=== PATIENT | female | born 1985 | race American Indian/Alaskan Native ===

== ENCOUNTER 2019-07-07 21:57 | Emergency (ER) | payer SELFPAY ==
[2019-07-07 22:22] VITALS: BP 119/82
--- NOTE | 2019-07-07 22:35 | Emergency Department Report ---
Chief Complaint: Urogenital-Female Stated Complaint: VAGINAL ODOR - HPI History of Present Illness: 34-year-old -[place] female presents to the emergency room for 2-day history of vaginal odor. Patient denies any nausea vomiting does complain of a little lower abdominal cramping but is currently on her period. Patient denies any fever or chills. - Exam Vital Signs: Vital Signs 07/07/19 22:05 Temperature 98.8 F Pulse Rate 111 H Respiratory 18 Rate Blood Pressure 119/82 O2 Sat by Pulse 98 Oximetry Physical Exam: Gen: alert oriented NAD Cardic: regular rate and rhythm no murmurs appreciated Resp: Clear to auscultation bilateral no wheezing no rales or rhonchi. Abdomen: Soft nontender nondistended normal bowel sounds. MSE screening note: Focused history and physical exam performed. Due to findings the following was ordered: 34-year-old -[place] female presents to the emergency room for 2-day history of vaginal odor. Patient denies any nausea vomiting does complain of a little lower abdominal cramping but is currently on her period. Patient denies any fever or chills. ED Medical Decision Making - Lab Data Lab Results 07/07/19 Range/Units 22:25 Urine Color Yellow (Yellow) Urine Turbidity Clear (Clear) Urine pH 6.0 (5.0-7.0) Ur Specific [place] 1.016 (1.003-1.030) Urine Protein <15 mg/dl (Negative) mg/dL Urine Glucose (UA) Neg (Negative) mg/dL Urine Ketones Neg (Negative) mg/dL Urine Blood Mod (Negative) Urine Nitrite Neg (Negative) Urine Bilirubin Neg (Negative) Urine Urobilinogen 2.0 (<2.0) mg/dL Ur Leukocyte Esterase Tr (Negative) Urine WBC (Auto) 8.0 H (0.0-6.0) /HPF Urine RBC (Auto) 5.0 (0.0-6.0) /HPF U Epithel Cells (Auto) 6.0 (0-13.0) /HPF Urine Bacteria (Auto) 2+ (Negative) /HPF Urine Mucus 2+ /HPF Urine HCG, Qual Negative (Negative) ED Disposition for MSE Disposition: MED SCREENING EXAM-LEFT Is pt being admited?: No Does the pt Need Aspirin: No Condition: Stable Additional Instructions: test is negative urinalysis is negative please follow-up with [facility] for further evaluation. Referrals: PRIMARY CARE [Primary Care Provider] - 3-5 Days [facility] [Provider Group] - 3-5 Days [facility] [Provider Group] - 3-5 Days
[2019-07-07 22:39] LABS: Bacteria,Urine 2+ /HPF (Negative); Bilirubin,Urine NEG (Negative); Blood,Urine MOD (Negative); Color,Urine Yellow (Yellow); Mucus,Urine 2+ /HPF; Protein,Urine <15 mg/dL mg/dL (Negative)
[2019-07-07 22:54] LABS: HCG Qualitative,Urine Negative (Negative)
== END 2019-07-07 23:06 | disposition left against medical advice (07) ==
LOC: ED 21:57
DX: R10.30 Lower abdominal pain, unspecified (principal); N89.8 Other specified noninflammatory disorders of vagina; D57.80 Other sickle-cell disorders without crisis
CPT/HCPCS: 81001; 81025

== ENCOUNTER 2019-07-28 17:37 | Emergency (ER) | payer SELFPAY ==
[2019-07-28 17:46] VITALS: BP 109/66
--- NOTE | 2019-07-28 18:09 | Event Note ---
ED Screening Note ED Screening Note: Lower abd pain that began 3 weeks ago no urinary sx no n/v/d no fever normal BM yesterday +vaginal discharge PMHx none no allergies to meds LNMP: end of june This initial assessment/diagnostic orders/clinical plan/treatment(s) is/are subject to change based on patients health status, clinical progression and re- assessment by fellow clinical providers in the ED. Further treatment and workup at subsequent clinical providers discretion. Patient/guardian urged not to elope from the ED as their condition may be serious if not clinically assessed and managed. Initial orders include: UA, urine preg, labs
[2019-07-28 18:16] LABS: Basophils # (Auto) 0.1 K/mm3 (0.0-0.1); Basophils % (Auto) 0.8 % (0.0-1.8); Eosinophils # (Auto) 0.1 K/mm3 (0.0-0.4); Eosinophils % (Auto) 1.4 % (0.0-4.3); Hematocrit 37.8 % (30.3-42.9); Hemoglobin 12.9 gm/dl (10.1-14.3); Lymphocytes # (Auto) 2.6 K/mm3 (1.2-5.4); Lymphocytes % (Auto) 39.9 % (13.4-35.0); Mean Corpuscular HGB Conc 34 % (30-34); Mean Corpuscular Volume 90 fl (79-97); Monocytes # (Auto) 0.4 K/mm3 (0.0-0.8); Monocytes % (Auto) 6.3 % (0.0-7.3); Platelet Count 261 K/mm3 (140-440); Red Blood Count 4.21 M/mm3 (3.65-5.03); Red Cell Distribution Width 12.3 % (13.2-15.2)
[2019-07-28 18:33] LABS: Bacteria,Urine 1+ /HPF (Negative); Bilirubin,Urine NEG (Negative); Blood,Urine MOD (Negative); Color,Urine Yellow (Yellow); Mucus,Urine FEW /HPF; Protein,Urine <15 mg/dL mg/dL (Negative); Urobilinogen,Urine < 2.0 mg/dL (<2.0)
[2019-07-28 18:34] LABS: HCG Qualitative,Urine Negative (Negative)
[2019-07-28 18:37] LABS: Alanine Aminotransferase 18 units/L (7-56); BUN/Creatinine Ratio 26; Blood Urea Nitrogen 13 mg/dL (7-17); Hemolysis Index 12
--- NOTE | 2019-07-28 20:05 | Emergency Department Report ---
ED Abdominal Pain HPI - General Chief Complaint: Abdominal Pain Stated Complaint: ABD PAIN Time Seen by Provider: 07/28/19 18:08 Source: patient Mode of arrival: Ambulatory Limitations: No Limitations - History of Present Illness Initial Comments: 34-year-old -Nepalese female with no significant past medical history reports to emergency department complaining of a 3-week history suprapubic cramping episodes associated with scant vaginal discharge however she reports having no worry of an STD. States that her primary reason for coming to [facility] department was to receive a Pap smear. She does have a number #[facility]INE [facility] which he plans to follow-up with sometime this week but wanted to get her Pap smear today. Reports no nausea vomiting or diarrhea, no vaginal bleeding, no hematuria or dysuria, no fevers, chills, sweats no dyspareunia. Location: suprapubic Radiation: none Migration to: no migration Severity: mild Quality: aching, dull Consistency: constant Improves With: nothing Worsens With: nothing Associated Symptoms: denies: vomiting, diarrhea, constipation, hematemesis, hematuria, anorexia, syncope - Related Data Home Medications Medication Instructions Recorded Confirmed Last Taken Pnv with Ca,No.72/Iron/FA 1 tab PO DAILY 06/28/13 07/14/13 07/14/13 [ Plus Tablet] 1 Allergies Allergy/AdvReac Type Severity Reaction Status Date / Time No Known Allergies Allergy Verified 06/28/13 15:46 ED Review of Systems ROS: Stated complaint: ABD PAIN Other details as noted in HPI Comment: All other systems reviewed and negative ED Past Medical Hx - Past Medical History Previous Medical History?: Yes Hx Hypertension: No Hx Congestive Heart Failure: No Hx Diabetes: No Hx Deep Vein Thrombosis: No Hx GERD: Yes Hx Renal Disease: No Hx Sickle Cell Disease: Yes (trait) Hx Seizures: No Hx Asthma: No Hx COPD: No Hx HIV: No Additional medical history: anemia - Surgical History Past Surgical History?: No - Social History Smoking Status: Current Every Day Smoker Substance Use Type: Alcohol - Medications Home Medications: Home Medications Medication Instructions Recorded Confirmed Last Taken Type Pnv with Ca,No.72/Iron/FA 1 tab PO DAILY 06/28/13 07/14/13 07/14/13 History [ Plus Tablet] 1 ED Physical Exam - General Limitations: No Limitations General appearance: alert, in no apparent distress - Head Head exam: Present: atraumatic, normocephalic - Eye Eye exam: Present: PERRL. Absent: normal appearance - ENT ENT exam: Present: mucous membranes moist - Neck Neck exam: Present: normal inspection - Respiratory Respiratory exam: Present: normal lung sounds bilaterally. Absent: respiratory distress - Cardiovascular Cardiovascular Exam: Present: regular rate, normal rhythm. Absent: systolic murmur, diastolic murmur, rubs, gallop - GI/Abdominal GI/Abdominal exam: Present: soft, normal bowel sounds. Absent: tenderness, guarding, rebound, organomegaly, mass, bruit - Extremities Exam Extremities exam: Present: normal inspection - Back Exam Back exam: Present: normal inspection - Neurological Exam Neurological exam: Present: alert, oriented X3 - Psychiatric Psychiatric exam: Present: normal affect, normal mood - Skin Skin exam: Present: warm, dry, intact, normal color. Absent: rash ED Course Vital Signs 07/28/19 07/28/19 17:41 18:09 Temperature 98.4 F Pulse Rate 115 H 84 Respiratory 18 Rate Blood Pressure 109/66 O2 Sat by Pulse 99 Oximetry ED Medical Decision Making - Lab Data Result diagrams: 07/28/19 18:05 07/28/19 18:05 Lab Results 07/28/19 07/28/19 07/28/19 Range/Units 18:05 18:05 Unknown WBC 6.4 (4.5-11.0) K/mm3 RBC 4.21 (3.65-5.03) M/mm3 Hgb 12.9 (10.1-14.3) gm/dl Hct 37.8 (30.3-42.9) % MCV 90 (79-97) fl MCH 31 (28-32) pg MCHC 34 (30-34) % RDW 12.3 L (13.2-15.2) % Plt Count 261 (140-440) K/mm3 Lymph % (Auto) 39.9 H (13.4-35.0) % Bell % (Auto) 6.3 (0.0-7.3) % Eos % (Auto) 1.4 (0.0-4.3) % Baso % (Auto) 0.8 (0.0-1.8) % Lymph # 2.6 (1.2-5.4) K/mm3 Bell # 0.4 (0.0-0.8) K/mm3 Eos # 0.1 (0.0-0.4) K/mm3 Baso # 0.1 (0.0-0.1) K/mm3 Seg Neutrophils % 51.6 (40.0-70.0) % Seg Neutrophils # 3.3 (1.8-7.7) K/mm3 Sodium 140 (137-145) mmol/L Potassium 3.5 L (3.6-5.0) mmol/L Chloride 105.1 (98-107) mmol/L Carbon Dioxide 23 (22-30) mmol/L Anion Gap 15 mmol/L BUN 13 (7-17) mg/dL Creatinine 0.5 L (0.7-1.2) mg/dL Estimated GFR > 60 ml/min BUN/Creatinine Ratio 26 % Glucose 117 H (65-100) mg/dL Calcium 9.0 (8.4-10.2) mg/dL Total Bilirubin 0.20 (0.1-1.2) mg/dL AST 16 (5-40) units/L ALT 18 (7-56) units/L Alkaline Phosphatase 80 (35-129) units/L Total Protein 7.0 (6.3-8.2) g/dL Albumin 4.0 (3.9-5) g/dL Albumin/Globulin Ratio 1.3 % Lipase 33 (13-60) units/L Urine Color Yellow (Yellow) Urine Turbidity Slightly-cloudy (Clear) Urine pH 6.0 (5.0-7.0) Ur Specific [place] 1.014 (1.003-1.030) Urine Protein <15 mg/dl (Negative) mg/dL Urine Glucose (UA) Neg (Negative) mg/dL Urine Ketones Neg (Negative) mg/dL Urine Blood Mod (Negative) Urine Nitrite Pos (Negative) Urine Bilirubin Neg (Negative) Urine Urobilinogen < 2.0 (<2.0) mg/dL Ur Leukocyte Esterase Tr (Negative) Urine WBC (Auto) 6.0 (0.0-6.0) /HPF Urine RBC (Auto) 3.0 (0.0-6.0) /HPF U Epithel Cells (Auto) 4.0 (0-13.0) /HPF Urine Bacteria (Auto) 1+ (Negative) /HPF Urine Mucus Few /HPF Urine HCG, Qual Negative (Negative) - Medical Decision Making This patient presents with abdominal pain of unclear etiology. Their evaluation has not identified a emergent etiology for the abdominal pain. Specifically, given the very benign exam, normal laboratory studies, and lack of significant risk factors, I have a very low suspicion for appendicitis, ischemic bowel, bowel perforation, or any other life threatening disease. I have discussed with the patient the level of uncertainty with undifferentiated abdominal pain and clearly explained the need to follow-up as noted on the discharge instructions, or return to the Emergency Department immediately if the pain worsens, develops fever, persistent and uncontrollable vomiting, or for any new symptoms or concerns. I discussed with the patient that this presentation today for abdominal pain could represent a significant risk for an acute abdominal process. Although the tests in the ED were essentially normal, there is still a possibility of a process such as appendicitis, diverticulitis, cholecystitis, ulcer, early bowel obstruction, mesenteric ischemia, kidney stone, or even kidney infection which could subsequently cause disability or . The patient understands that they must return within 24 hours for a recheck or see their physician within 24 hours for re-exam due to the possibility of significant surgical or medical process. I discussed with Ms. Goetz on where she could receive a Pap smear but she was not pleased with the information primarily the fact that this [facility] does not conduct Pap smears in the emergency department I did try to clarify the fact and offered her a pelvic examination to do STD checking and a structural evaluation of her genital area however she stated that is not the test she was looking Critical care attestation.: If time is entered above; I have spent that time in minutes in the direct care of this critically ill patient, excluding procedure time. ED Disposition Clinical Impression: Abdominal pain Disposition: DC-07 LEFT AGAINST MED ADVICE Is pt being admited?: No Does the pt Need Aspirin: No Condition: Stable Instructions: Abdominal Pain (ED) Forms: AMA Form
== END 2019-07-28 20:31 | disposition left against medical advice (07) ==
LOC: ED 17:37
DX: R10.2 Pelvic and perineal pain (principal); N89.8 Other specified noninflammatory disorders of vagina; K21.9 Gastro-esophageal reflux disease without esophagitis; F17.200 Nicotine dependence, unspecified, uncomplicated; Z79.899 Other long term (current) drug therapy
CPT/HCPCS: 36415; 80053; 81001; 81025; 83690; 85025

== ENCOUNTER 2019-10-12 21:54 | Emergency (ER) | payer SELFPAY ==
[2019-10-12 22:35] VITALS: BP 98/61
[2019-10-12 23:51] LABS: Bacteria,Urine 1+ /HPF (Negative); Bilirubin,Urine NEG (Negative); Blood,Urine SM (Negative); Color,Urine Yellow (Yellow); Mucus,Urine FEW /HPF; Protein,Urine <15 mg/dL mg/dL (Negative); Urobilinogen,Urine < 2.0 mg/dL (<2.0)
[2019-10-12 23:58] LABS: HCG Qualitative,Urine Negative (Negative)
== END 2019-10-13 07:00 | disposition left against medical advice (07) ==
LOC: ED 21:54
DX: R10.9 Unspecified abdominal pain (principal); Z53.21 Procedure and treatment not carried out due to patient leaving prior to being seen by health care provider
CPT/HCPCS: 81001; 81025

== ENCOUNTER 2019-10-24 16:22 | Emergency (ER) | payer SELFPAY ==
[2019-10-24 16:47] VITALS: BP 95/57
--- NOTE | 2019-10-24 21:12 | Emergency Department Report ---
<JANAK MUJICA - Last Filed: 10/24/19 21:08> ED General Adult HPI - General Chief complaint: Abdominal Pain Stated complaint: /ULTRA SOUNG/ABD PAIN Time Seen by Provider: 10/24/19 19:54 Source: patient Mode of arrival: Ambulatory Limitations: No Limitations - History of Present Illness Initial comments: 34-year-old -[place] female patient presents with complaints of intermittent pelvic pain x3 weeks and positive test at home today. She states her last menstrual cycle was 2 months ago and she is A1. She rates her current pain as a 6/10 in severity and admits to some vaginal discharge. She denies any vaginal bleeding, dysuria, hematuria, urinary frequency, nausea/vomiting/diarrhea, stool changes, or fever/chills/sweats. She describes her pain as cramping in nature. -: Gradual - Related Data Home Medications Medication Instructions Recorded Confirmed Last Taken Pnv with Ca,No.72/Iron/FA 1 tab PO DAILY 06/28/13 07/14/13 07/14/13 [ Plus Tablet] 1 Previous Rx's Medication Instructions Recorded Last Taken Type Doxycycline Monohydrate 100 mg PO BID 14 Days #28 capsule 10/24/19 Unknown Rx Ibuprofen [Motrin 800 MG tab] 800 mg PO Q8HR PRN #21 tablet 10/24/19 Unknown Rx metroNIDAZOLE [Flagyl] 500 mg PO BID 7 Days #14 tab 10/24/19 Unknown Rx Allergies Allergy/AdvReac Type Severity Reaction Status Date / Time No Known Allergies Allergy Verified 10/24/19 16:44 ED Review of Systems Constitutional: denies: chills, diaphoresis, fever, malaise, weakness Respiratory: denies: cough, shortness of breath Cardiovascular: denies: chest pain Gastrointestinal: abdominal pain. denies: nausea, vomiting, diarrhea, constipation, hematemesis, melena, hematochezia Genitourinary: discharge. denies: urgency, dysuria, frequency, hematuria, dyspareunia Musculoskeletal: denies: back pain Skin: denies: rash, lesions Neurological: denies: headache Hematological/Lymphatic: denies: swollen glands ED Past Medical Hx - Past Medical History Hx Hypertension: No Hx Congestive Heart Failure: No Hx Diabetes: No Hx Deep Vein Thrombosis: No Hx GERD: Yes Hx Renal Disease: No Hx Sickle Cell Disease: Yes (trait) Hx Seizures: No Hx Asthma: No Hx COPD: No Hx HIV: No Additional medical history: anemia - Social History Smoking Status: Never Smoker - Medications Home Medications: Home Medications Medication Instructions Recorded Confirmed Last Taken Type Pnv with Ca,No.72/Iron/FA 1 tab PO DAILY 06/28/13 07/14/13 07/14/13 History [ Plus Tablet] 1 Doxycycline Monohydrate 100 mg PO BID 14 Days #28 capsule 10/24/19 Unknown Rx Ibuprofen [Motrin 800 MG tab] 800 mg PO Q8HR PRN #21 tablet 10/24/19 Unknown Rx metroNIDAZOLE [Flagyl] 500 mg PO BID 7 Days #14 tab 10/24/19 Unknown Rx ED Physical Exam - General Limitations: No Limitations General appearance: alert, in no apparent distress - Head Head exam: Present: atraumatic, normocephalic - Eye Eye exam: Present: normal appearance. Absent: scleral icterus - ENT ENT exam: Present: mucous membranes moist - Neck Neck exam: Present: normal inspection - Cardiovascular Cardiovascular Exam: Present: regular rate, normal rhythm. Absent: systolic murmur, diastolic murmur, rubs, gallop - GI/Abdominal GI/Abdominal exam: Present: soft, tenderness (Suprapubic). Absent: distended, guarding, rebound, rigid, normal bowel sounds - Speculum exam: Present: vaginal discharge (Yellow/greenish) Bi-manual exam: Present: cervical motion tendernes - Extremities Exam Extremities exam: Present: normal inspection - Back Exam Back exam: Present: normal inspection - Neurological Exam Neurological exam: Present: alert, oriented X3 - Psychiatric Psychiatric exam: Present: normal affect, normal mood ED Medical Decision Making - Medical Decision Making 34-year-old -[place] female patient presents with complaints of intermittent pelvic pain x3 weeks and positive test at home today. She states her last menstrual cycle was 2 months ago and she is A1. She rates her current pain as a 6/10 in severity and admits to some vaginal discharge. She denies any vaginal bleeding, dysuria, hematuria, urinary frequency, nausea/vomiting/diarrhea, stool changes, or fever/chills/sweats. She describes her pain as cramping in nature. test is negative. No abnormalities on CBC or CMP. CMT noted on exam. No guarding or rebound noted on abdominal exam. Will treat for PID. Azithromycin and Rocephin given. Patient informed that her partner will need to be tested and treated also. She was also informed to avoid sexual intercourse for 3 weeks. Wet prep is pending. Patient handed off to KATHERINE Vaz. Patient instructed to follow-up with [facility] REGISTERED NURSE in 3 days. ED Disposition Clinical Impression: PID (acute pelvic inflammatory disease) Disposition: DC- TO HOME OR SELFCARE Is pt being admited?: No Condition: Stable Instructions: Pelvic Inflammatory Disease (ED) Prescriptions: Doxycycline Monohydrate 100 mg PO BID 14 Days #28 capsule metroNIDAZOLE [Flagyl] 500 mg PO BID 7 Days #14 tab Ibuprofen [Motrin 800 MG tab] 800 mg PO Q8HR PRN #21 tablet PRN Reason: pain Referrals: JESUS MAX MD [Staff Physician] - 3-5 Days Forms: Work/School Release Form(ED) <CARMEL MCKEON - Last Filed: 10/24/19 23:44> ED Review of Systems ROS: Stated complaint: /ULTRA SOUNG/ABD PAIN Other details as noted in HPI ED Course Vital Signs 10/24/19 16:46 Temperature 98.9 F Pulse Rate 79 Respiratory 18 Rate Blood Pressure 95/57 O2 Sat by Pulse 99 Oximetry ED Medical Decision Making - Lab Data Result diagrams: 10/24/19 21:11 10/24/19 21:11 Wet prep pos for clues, - Medical Decision Making pt statesdc'd to home with rx for flagyl po , will follow up with [facility] of [facility] in 2-3 days. pt verbalized agreement and understanding of same. Critical care attestation.: If time is entered above; I have spent that time in minutes in the direct care of this critically ill patient, excluding procedure time. ED Disposition Does the pt Need Aspirin: No Time of Disposition: 23:43
[2019-10-24 21:30] LABS: Hematocrit 36.5 % (30.3-42.9); Hemoglobin 12.2 gm/dl (10.1-14.3); Mean Corpuscular HGB Conc 33 % (30-34); Mean Corpuscular Volume 91 fl (79-97); Platelet Count 217 K/mm3 (140-440); Red Blood Count 4.02 M/mm3 (3.65-5.03); Red Cell Distribution Width 12.6 % (13.2-15.2)
[2019-10-24 21:46] LABS: Alanine Aminotransferase 17 units/L (7-56); Albumin 3.9 g/dL (3.9-5); Blood Urea Nitrogen 10 mg/dL (7-17); Calcium 8.4 mg/dL (8.4-10.2); Hemolysis Index 9
[2019-10-24 21:46] LABS: Bilirubin,Urine NEG (Negative); Blood,Urine SM (Negative); Color,Urine Yellow (Yellow); Mucus,Urine FEW /HPF; Protein,Urine <15 mg/dL mg/dL (Negative); Urobilinogen,Urine < 2.0 mg/dL (<2.0)
[2019-10-24 21:47] LABS: BUN/Creatinine Ratio 20
[2019-10-24 21:50] LABS: HCG Qualitative,Urine Negative (Negative)
[2019-10-24 22:04] LABS: Total Cells Counted 100
[2019-10-24 22:06] LABS: RBC Morphology Normal
[2019-10-24] MEDS ORDERED: AZITHROMYCIN 250 MG TAB PO ONE (23:57)
[2019-10-24] MEDS ORDERED: LIDOCAINE-MPF (1%) 10 MG/1 ML VIAL 5 ML INFILTRATI ONE (23:57)
== END 2019-10-25 00:10 | disposition home or self-care (01) ==
LOC: ED 16:22
DX: N73.9 Female pelvic inflammatory disease, unspecified (principal); K21.9 Gastro-esophageal reflux disease without esophagitis; Z79.899 Other long term (current) drug therapy
CPT/HCPCS: 36415; 80053; 81001; 81025; 83690; 84702; 85007; 85025; 87210; 87591; 96372; 99283; J0696

== ENCOUNTER 2019-11-09 21:07 | Emergency (ER) | payer SELFPAY ==
[2019-11-09 22:28] LABS: Bilirubin,Urine NEG (Negative); Blood,Urine SM (Negative); Color,Urine Straw (Yellow); Mucus,Urine FEW /HPF; Protein,Urine <15 mg/dL mg/dL (Negative); Urobilinogen,Urine < 2.0 mg/dL (<2.0)
[2019-11-09 22:29] LABS: HCG Qualitative,Urine Negative (Negative)
[2019-11-10] MEDS ORDERED: IBUPROFEN 600 MG TAB PO ONE (01:08)
--- NOTE | 2019-11-10 02:07 | Ultrasound Report ---
US pelvic complete INDICATION / CLINICAL INFORMATION: pelvic pain. COMPARISON: None available. FINDINGS: Uterus appears unremarkable. Endometrial stripe measures 1.1 cm in thickness. Both ovaries are normal. Color Doppler imaging shows normal vascular flow in each ovary. No free flui d or abnormal mass. IMPRESSION: 1. Negative exam. Signer Name: Nico Anthony MD Signed: 11/10/2019 2:03 AM Workstation Name: [id number]
--- NOTE | 2019-11-10 02:23 | Emergency Department Report ---
ED Female HPI - General Chief complaint: Urogenital-Female Stated complaint: STOMACH PAIN Source: patient Mode of arrival: Ambulatory Limitations: No Limitations - History of Present Illness Initial comments: Patient is a 34-year-old -[place] female with a history of GERD who presents to the ED with complaint of acute onset persistent pelvic pain for the last 1 month after having unprotected sexual intercourse. Patient states that she was initially evaluated extensively in this ED following this symptoms about 3 weeks ago, and had pelvic exam and was treated empirically for acute PID. Patient states that she was also given antibiotic prescription for PID which she took completely. Patient states that she has however not followed up with any [facility] physician as she does not have any. Patient states that her pelvic and cervical pain is persistent and she would like to be evaluated again for the same. Patient however states that she suspects that her sexual partner may have inserted something into her cervix and now she demands that "my cervix has to be opened to remove the foreign body in the cervix". Patient denies vaginal discharge, vaginal bleeding, dysuria, urinary frequency and urgency, fever, chills, nausea, vomiting, dizziness, traumatic injury, heavy lifting, headache or cough, sore throat or back pain. MD Complaint: pelvic pain -: Gradual, month(s) (1) Location: suprapubic Severity: moderate Severity scale (0 -10): 6 Quality: sharp, aching Consistency: constant Improves with: none Worsens with: intercourse, movement Are you Now?: No Associated Symptoms: denies other symptoms, abdominal pain (suprapubic). denies: vaginal discharge, vaginal bleeding, nausea/vomiting, fever/chills, headaches, loss of appetite, hematuria, rash, seizure, shortness of breath, syncope, weakness - Related Data Sexually active: Yes Home Medications Medication Instructions Recorded Confirmed Last Taken Pnv with Ca,No.72/Iron/FA 1 tab PO DAILY 06/28/13 07/14/13 07/14/13 [ Plus Tablet] 1 Previous Rx's Medication Instructions Recorded Last Taken Type Doxycycline Monohydrate 100 mg PO BID 14 Days #28 capsule 10/24/19 Unknown Rx metroNIDAZOLE [Flagyl] 500 mg PO BID 7 Days #14 tab 10/24/19 Unknown Rx Ibuprofen [Motrin 800 MG tab] 800 mg PO Q8HR PRN #30 tablet 11/10/19 Unknown Rx Allergies Allergy/AdvReac Type Severity Reaction Status Date / Time No Known Allergies Allergy Verified 10/24/19 16:44 ED Review of Systems ROS: Stated complaint: STOMACH PAIN Other details as noted in HPI Constitutional: denies: chills, fever Eyes: denies: eye pain, eye discharge, vision change ENT: denies: ear pain, throat pain Respiratory: denies: cough, shortness of breath, wheezing Cardiovascular: denies: chest pain, palpitations Endocrine: no symptoms reported Gastrointestinal: abdominal pain (Suprapubic pain). denies: nausea, vomiting, diarrhea Genitourinary: dyspareunia. denies: urgency, dysuria, discharge, abnormal menses, other (Pelvic pain) Musculoskeletal: denies: back pain, joint swelling, arthralgia Skin: denies: rash, lesions Neurological: denies: headache, weakness, paresthesias Psychiatric: denies: anxiety, depression Hematological/Lymphatic: denies: easy bleeding, easy bruising ED Past Medical Hx - Past Medical History Previous Medical History?: Yes Hx Hypertension: No Hx Congestive Heart Failure: No Hx Diabetes: No Hx Deep Vein Thrombosis: No Hx GERD: Yes Hx Renal Disease: No Hx Sickle Cell Disease: Yes (trait) Hx Seizures: No Hx Asthma: No Hx COPD: No Hx HIV: No Additional medical history: anemia - Surgical History Past Surgical History?: No - Social History Smoking Status: Never Smoker Substance Use Type: None - Medications Home Medications: Home Medications Medication Instructions Recorded Confirmed Last Taken Type Pnv with Ca,No.72/Iron/FA 1 tab PO DAILY 06/28/13 07/14/13 07/14/13 History [ Plus Tablet] 1 Doxycycline Monohydrate 100 mg PO BID 14 Days #28 capsule 10/24/19 Unknown Rx metroNIDAZOLE [Flagyl] 500 mg PO BID 7 Days #14 tab 10/24/19 Unknown Rx Ibuprofen [Motrin 800 MG tab] 800 mg PO Q8HR PRN #30 tablet 11/10/19 Unknown Rx ED Physical Exam - General Limitations: No Limitations General appearance: alert, in no apparent distress - Head Head exam: Present: atraumatic, normocephalic, normal inspection - Eye Eye exam: Present: normal appearance, PERRL, EOMI Pupils: Present: normal accommodation - ENT ENT exam: Present: normal exam, normal orophraynx, mucous membranes moist, TM's normal bilaterally, normal external ear exam - Neck Neck exam: Present: normal inspection, full ROM - Respiratory Respiratory exam: Present: normal lung sounds bilaterally. Absent: respiratory distress, wheezes, rales, rhonchi, chest wall tenderness, accessory muscle use - Cardiovascular Cardiovascular Exam: Present: regular rate, normal rhythm, normal heart sounds. Absent: systolic murmur, diastolic murmur, rubs, gallop - GI/Abdominal GI/Abdominal exam: Present: soft, normal bowel sounds. Absent: tenderness, guarding, rebound, hyperactive bowel sounds, hypoactive bowel sounds, organomeg caroline - Bi-manual exam: Present: other (Pelvic exam deferred, patient declined) - Extremities Exam Extremities exam: Present: normal inspection, full ROM, normal capillary refill - Back Exam Back exam: Present: normal inspection, full ROM. Absent: tenderness, CVA tenderness (R), CVA tenderness (L), muscle spasm, paraspinal tenderness, vertebral tenderness - Neurological Exam Neurological exam: Present: alert, oriented X3, CN II-XII intact, normal gait, reflexes normal - Psychiatric Psychiatric exam: Present: normal affect, normal mood - Skin Skin exam: Present: warm, dry, intact, normal color. Absent: rash ED Course Vital Signs 11/09/19 11/09/19 21:32 21:40 Temperature 97.9 F Pulse Rate 64 Respiratory 16 16 Rate Blood Pressure 96/65 O2 Sat by Pulse 98 Oximetry ED Medical Decision Making - Radiology Data Radiology results: report reviewed, image reviewed Findings [facility] [address] [place] [address] Ultrasound Report Signed Patient: ROSA MARIA ALVAREZ MR#: [id number] : 1985 Acct:[id number] Age/Sex: 34 / F ADM Date: 11/09/19 Loc: ED Attending Dr: Ordering Physician: RAMAKRISHNA JOHNSON Date of Service: 11/10/19 Procedure(s): US pelvic complete Accession Number(s): [id number] cc: RAMAKRISHNA JOHNSON US pelvic complete INDICATION / CLINICAL INFORMATION: pelvic pain. COMPARISON: None available. FINDINGS: Uterus appears unremarkable. Endometrial stripe measures 1.1 cm in thickness. Both ovaries are normal. Color Doppler imaging shows normal vascular flow in each ovary. No free fluid or abnormal mass. IMPRESSION: 1. Negative exam. Signer Name: Nico Anthony MD Signed: 11/10/2019 2:03 AM Workstation Name: [id number] Transcribed By: TM Dictated By: Nico Anthony MD Electronically Authenticated By: Nico Anthony MD Signed Date/Time: 11/10/19202 DD/ 0157 TD/TT: - Medical Decision Making This is a 34-year-old -[place] female with a history of GERD who presents to the ED with complaint of acute onset persistent pelvic pain for the last 1 month after having unprotected sexual intercourse. Patient states that she was initially evaluated extensively in this ED following this symptoms about 3 weeks ago, and had pelvic exam and was treated empirically for acute PID. Patient states that she was also given antibiotic prescription for PID which she took completely. Patient states that she has however not followed up with any [facility] physician as she does not have any. Patient states that her pelvic and cervical pain is persistent and she would like to be evaluated again for the same. Patient however states that she suspects that her sexual partner may have inserted something into her cervix and now she demands that "my cervix has to be opened to remove the foreign body in the cervix". In the ED, patient is alert and oriented x3 and is not in distress. Patient was treated for pain in the ED. Urinalysis is unremarkable. Pelvic ultrasound showed no acute abnormalities. Patient was discharged home on pain medications, and was advised to follow-up with her [facility] physician in 5 to 7 days for reevaluation. Patient was given a referral to the [facility] physician Dr. Max for follow-up. Patient was advised return to the ED immediately if symptoms get worse. - Differential Diagnosis PID; UTI; ovarian cyst; dermoid cyst; ; uterine fibroids Critical care attestation.: If time is entered above; I have spent that time in minutes in the direct care of this critically ill patient, excluding procedure time. ED Disposition Clinical Impression: Acute pelvic pain, female Disposition: DC-01 TO HOME OR SELFCARE Is pt being admited?: No Does the pt Need Aspirin: No Condition: Stable Instructions: Abdominal Pain (ED) Additional Instructions: All lab test results and imaging reports are unremarkable. Specifically there is no foreign body embedded in the cervix or in the uterus. Therefore take pain medication as needed, maintain a complete pelvic rest, and follow-up with your [facility] physician Dr. Max as advised in [address] Max's office on Monday November 11, 2019 to schedule a follow-up appointment. Return to the ED immediately if symptoms get worse. Prescriptions: Ibuprofen [Motrin 800 MG tab] 800 mg PO Q8HR PRN #30 tablet PRN Reason: pain Referrals: JESUS MAX MD [Staff Physician] - 3-5 Days Time of Disposition: 02:28 Print Language: LITHUANIAN
[2019-11-10 02:39] VITALS: BP 107/68
== END 2019-11-10 02:39 | disposition home or self-care (01) ==
LOC: ED 21:07
DX: R10.2 Pelvic and perineal pain (principal); K21.9 Gastro-esophageal reflux disease without esophagitis; Z79.899 Other long term (current) drug therapy
CPT/HCPCS: 76856; 81001; 81025

== ENCOUNTER 2020-09-29 22:24 | Emergency (ER) | payer SELFPAY | END 2020-09-29 23:30 | disposition left against medical advice (07) | LOC: ED 22:24 | DX: Z00.00 Encounter for general adult medical examination without abnormal findings (principal); Z53.21 Procedure and treatment not carried out due to patient leaving prior to being seen by health care provider ==